=== PATIENT | female | born 1950 | race Asian ===

== ENCOUNTER 2023-07-03 23:05 | Inpatient (IN) ==
[2023-07-04 00:52] LABS: Albumin 4.2 g/dL (3.2-5.2); Albumin/Globulin Ratio 1.8 (1-3); Calcium 9.1 mg/dL (8.6-10.3); Creatinine, Serum 0.66 mg/dL (0.51-0.95); Globulin 2.4 g/dL (2-4); Potassium 3.3 mmol/L (3.5-5.0); Total Bilirubin 0.5 mg/dL (0.2-1.0); Total Protein 6.6 g/dL (6.4-8.9)
[2023-07-04 00:53] LABS: ABS Lymphocytes 0.5 10^3/uL (1.0-4.8); ABS Monocytes 0.4 10^3/uL (0.0-0.9); Eosinophil % 0.7 %; Hematocrit 33.2 % (35-45); Hemoglobin 11.6 g/dL (11.5-14.3); Lymphocyte % 9.8 %; Mean Corpuscular Hemoglobin 31.5 pg (27-33); Mean Corpuscular Hgb Conc 34.9 g/dL (31-36); Mean Corpuscular Volume 90.3 fL (80-97); Platelet Count 184 10^3/uL (150-450); Red Blood Count 3.68 10^6/uL (3.63-4.92); Red Cell Distribution Width 13.2 % (12-17)
[2023-07-04 01:28] LABS: INR 1.1 (0.83-1.13)
[2023-07-04] MEDS: Albuterol 2.5mg/3 ml (0.083%) NEB.SOLN INH ONE ×3 (01:33→04:38)
[2023-07-04] MEDS: methylPREDNISolone SOD SUCC 125 mg 2 ML VIAL IV ONE (01:54)
[2023-07-04 02:26] LABS: High Sensitivity Troponin 1 Hr 26 pg/mL (<15)
[2023-07-04] MEDS ORDERED: Senna TAB 8.6 mg TAB PO PRN (04:42)
[2023-07-04] MEDS ORDERED: Ondansetron 4 mg VIAL 2 MG/ML 2 ml VIAL IV PRN (04:42)
[2023-07-04] MEDS ORDERED: Polyethylene Glycol 3350 17 GM PACKET PO PRN (04:42)
[2023-07-04] MEDS ORDERED: Albuterol/Ipratropium NEB.SOL (2.5/0.5 MG) 3 ML NEB.SOLN INH PRN (05:18)
[2023-07-04] MEDS: guaiFENesin/CODIENE 100mg/10mg 5 ML UDC PO PRN (06:19)
[2023-07-04] MEDS: Enoxaparin 40 MG/0.4 ML SYR SUBCUT SCH (06:26)
[2023-07-04] MEDS: Potassium Chlor 20 meq TAB.ER PO ONE (08:41)
[2023-07-04] MEDS: methylPREDNISolone SOD SUCC 40 mg/ml 1 ml VIAL IV SCH (08:47)
[2023-07-04] MEDS: Azithromycin 500 mg/250 ml NS 500 MG/250 ML BAG IVPB SCH (09:54)
[2023-07-04] MEDS: Lactated Ringers 1000 ml BAG 1,000 ML IV SCH (10:13)
[2023-07-04] MEDS: cefTRIAXone 1 gm/50 mL D5W 1 GM/50 ML BAG IV SCH (11:42)
[2023-07-04] MEDS ORDERED: Albuterol HFA INHALER 8 gm MDI INH PRN (14:30)
[2023-07-05 06:28] LABS: ABS Lymphocytes 1.3 10^3/uL (1.0-4.8); ABS Monocytes 0.9 10^3/uL (0.0-0.9); ABS Neutrophils 8.8 10^3/uL (1.5-7.6); Hematocrit 29.6 % (35-45); Hemoglobin 10.4 g/dL (11.5-14.3); Lymphocyte % 11.9 %; Mean Corpuscular Hemoglobin 31.7 pg (27-33); Mean Corpuscular Volume 90.4 fL (80-97); Platelet Count 169 10^3/uL (150-450); Red Blood Count 3.27 10^6/uL (3.63-4.92); Red Cell Distribution Width 13.8 % (12-17)
[2023-07-05 06:44] LABS: Calcium 8.8 mg/dL (8.6-10.3); Creatinine, Serum 0.62 mg/dL (0.51-0.95); Potassium 3.7 mmol/L (3.5-5.0); eGFR CKD-EPI 93.4 (>60)
[2023-07-05] MEDS: methylPREDNISolone SOD SUCC 40 mg/ml 1 ml VIAL IV SCH (08:25)
[2023-07-05 10:02] VITALS: BP 181/84
== END 2023-07-05 11:40 | disposition home or self-care (01) | DRG 189 ==
LOC: ED 23:05 → EDHOLD 07-04 04:42 → MEDTELE 07-04 12:05
PROVIDERS: ADMIT Student in an Organized Health Care Education/Training Program; ATTEND Student in an Organized Health Care Education/Training Program